=== PATIENT | male | born 1955 ===

== ENCOUNTER → 2017-09-26 | Outpatient (CLI) | payer OTHER ==
[~2017-09-26] MED LIST: MOBIC15 MG PO
== END | disposition home or self-care (01) ==
LOC: MRI 11:58
DX: D21.0 Benign neoplasm of connective and other soft tissue of head, face and neck (principal)
CPT/HCPCS: 73221

== ENCOUNTER 2018-01-29 07:15 | Emergency (ER) | payer OTHER ==
[~2018-01-29] VITALS: Ht 175.3 cm; Wt 99.8 kg
[2018-01-29] MEDS ORDERED: AVAPRO75 MG (07:47)
[2018-01-29] MEDS ORDERED: ATORVASTATIN CA10 MG (07:48)
[2018-01-29] MEDS ORDERED: FENOFIBRATE145 MG (07:48)
[2018-01-29] MEDS ORDERED: IBUPROFEN800 MG PO (11:44)
== END 2018-01-29 12:08 | disposition home or self-care (01) ==
LOC: ER 07:15
DX: S22.32XA Fracture of one rib, left side, initial encounter for closed fracture (principal); V19.9XXA Pedal cyclist (driver) (passenger) injured in unspecified traffic accident, initial encounter; Y93.89 Activity, other specified; Y92.488 Other paved roadways as the place of occurrence of the external cause; Y99.8 Other external cause status

== ENCOUNTER 2018-12-29 19:31 | Emergency (ER) | payer OTHER ==
[~2018-12-29] VITALS: Ht 175.3 cm; Wt 99.8 kg
[~2018-12-29 19:31] MED LIST changes: +ATORVASTATIN CA10 MG; +AVAPRO75 MG; +FENOFIBRATE145 MG; +IBUPROFEN800 MG PO
== END 2018-12-30 00:20 | disposition home or self-care (01) ==
LOC: ER 19:31
DX: J11.1 Influenza due to unidentified influenza virus with other respiratory manifestations (principal)

== ENCOUNTER 2021-05-06 08:15 | Outpatient (CLI) | payer OTHER | END 2021-05-06 08:22 | disposition home or self-care (01) | LOC: NUCLEAR 08:15 | PROVIDERS: ATTEND Internal Medicine Cardiovascular Disease | DX: R07.89 Other chest pain (principal); I50.1 Left ventricular failure, unspecified | CPT/HCPCS: 78452; 93017; A9500 ==

== ENCOUNTER 2022-09-05 11:53 | Emergency (ER) | payer OTHER ==
[~2022-09-05] VITALS: Ht 175.3 cm; Wt 97.5 kg
[2022-09-05] MEDS ORDERED: MELOXICAM15 MG PO (12:16)
== END 2022-09-05 14:12 | disposition home or self-care (01) ==
LOC: ER 11:53
DX: M54.50 Low back pain, unspecified (principal)